=== PATIENT | female | born 1975 | race Caucasian/White ===

== ENCOUNTER 2021-05-02 18:37 | Emergency (ER) | payer MEDICAID, SELFPAY ==
[2021-05-02 18:37] VITALS: BP 128/77; PULSE 124; RESP 18; TEMP 36.6; O2SAT 98; BMI 23.0
--- NOTE | 2021-05-02 18:56 | EDS_ITS ---
HPI HPI - Female History of Present Illness Chief Complaint: Female C/O Informant: patient Pain Pain: Positive for Pelvic Pain Onset: Days Context: Gradual Onset Quality: Positive for Aching and - (Pressure) Current Severity: Mild Maximum Severity: Mild Narrative Narrative: Patient presents secondary to pelvic pressure. She noted slight increased work of passing urine and gas recently. She does have a history of co nstipation. She states when she started to inspect the area she felt like there was some tissue protruding from her vaginal opening. She did have a hysterectomy 10 years ago. She is scheduled to see Dr. Tabares next week. PFSH PFSH Allergy/AdvReac Type Severity Reaction Status Date / Time No Known Allergies Allergy Verified 05/02/21 18:39 Surgical History H/O: hysterectomy Social History Smoking Status: Never smoker ROS ROS ED Constitutional Constitutional ED: Denies chills or fever(s) Eyes Eyes: Denies change in vision ENT ENT ED: Denies sore throat Cardiovascular Cardiovascular: Denies chest pain Respiratory/Chest Respiratory/Chest: Denies cough or dyspnea Gastrointestinal Gastrointestinal: Reports abdominal pain; Denies diarrhea, nausea or vomiting Genitourinary Genitourinary ED: Denies dysuria or hematuria Musculoskeletal Musculoskeletal: Denies back pain Integumentary Denies rash Neurologic Neurologic: Denies headache(s) or weakness Allergic/Immunologic Allergic/Immunologic ED: Denies urticaria EXAM Physical Exam Const Vital Signs: 05/02/21 18:37 Temperature 97.9 F Temperature Source Temporal Pulse Rate 124 H Respiratory Rate 18 Blood Pressure 128/77 H Blood Pressure Mean 94 Pulse Ox 98 Oxygen Delivery Method Room Air Positive well nourished and well developed General Appearance ED: well developed HEENT Reports moist mucous membranes Eyes PERRL and EOMs intact bilaterally Neck supple Chest Wall inspection of chest normal and palpation of chest normal Resp normal respiratory effort and clear to auscultation bilaterally Cardio regular rate and regular rhythm GI normal to inspection, nondistended, normoactive bowel sounds, soft to palpation and non-tender Narrative: No abnormal vaginal tissue noted on external exam. No lesions. Digital examination of the vaginal area reveals no palpable masses. Extremity normal to inspection Neuro oriented x3 Sensorium / Orientation: alert Psych mental status grossly normal Skin no rashes or lesions noted MDM [facility] Lab Data Attestation: I reviewed the patient's lab results. Labs: Laboratory Results - last 24 hr 05/02/21 20:04 Urine Color Yellow Urine Clarity Clear Urine pH 6.0 Ur Specific [place] 1.025 Urine Protein Negative Urine Glucose (UA) Normal Urine Ketones 5 H Urine Occult Blood Negative Urine Nitrite Negative Urine Bilirubin Negative Urine Urobilinogen Normal Ur Leukocyte Esterase Negative Urine RBC 0 SEEN Urine WBC 0 SEEN Ur Squamous Epith Cells 0-5 SEEN Urine Bacteria 1+ Urine Mucus 0 SEEN Radiography Diagnostic Testing: Clinical Impression(s) from Imaging Studies Abdomen X-Ray 05/02/21 19:03 IMPRESSION: Non-obstructive bowel gas pattern. Moderate amount of retained stool in colon. Electronically Signed: Zeus Elaine MD at 20:36 EDT , Treatment and Re-Evaluation Narrative: Urinalysis reveals no acute abnormalities. Abdominal x-ray reveals increased stool but nonobstructive bowel gas pattern per my interpretation. Radiology to rotation is also reviewed. Test results discussed with the patient. We discussed using magnesium citrate to help treat her constipation. She will follow up with Dr. Tabares next week as scheduled. Discharge Plan Triage Chief Complaint: Female C/O ED Provider: Madalyn Draper Dx/Rx/DC Orders Clinical Impression: Pelvic pain, Constipation Instructions: ED Constipation (Adult), ED Pelvic Pain, Unknown Cause Primary Care Provider: Lachelle Tucker Referrals: Lachelle Tucker MD [Primary Care Provider] - Jaxon Tabares MD [STAFF PHYSICIAN] - Keep Hallie appointment Disposition Disposition: Home, Self Care
--- NOTE | 2021-05-02 19:03 | RAD_ITS ---
INDICATION: pain EXAMINATION/TECHNIQUE: X-RAY - XR Abdomen W/ Decub and/or Erect Views COMPARISON: None FINDINGS: BOWEL GAS PATTERN: Non-obstructive. Moderate amount of retained stool in colon. FREE AIR: Not assessed on a single supine view. ORGANOMEGALY: Not seen. CALCIFICATIONS: No abnormal calcifications observed. LOWER CHEST: No acute pathology. BONES AND SOFT TISSUES: No acute pathology. RAD/Abd Inc Decub and/or Erect IMPRESSION: Non-obstructive bowel gas pattern. Moderate amount of retained stool in colon. Electronically Signed: Zeus Elaine MD at 20:36 EDT ,
[2021-05-02 20:12] LABS: Mucous, Urine 0 SEEN /hpf (<or=2+); Red Blood Cells-Urine 0 SEEN /hpf (0-5); White Blood Cells 0 SEEN /hpf (0-5)
[2021-05-02 20:13] LABS: Color, Urine Yellow (Yellow); Glucose, Dipstick Normal (Normal); Ketone-Dipstick 5 mg/dl (Negative); Leukocyte Esterase-Dipstick Negative /ul (Negative); Nitrite-Dipstick Negative (Negative); Occult Blood-Urine Negative /ul (Negative); Protein-Dipstick Negative (Negative); Specific Gravity, Urine 1.025 (1.002-1.030); Urine Bilirubin Dipstick Negative (Negative); Urine Clarity Clear (Clear); Urine Urobilinogen Normal (Normal)
[2021-05-02 20:36] LABS: Bacteria 1+ /hpf (None Seen); Squamous Epithelial Cells - UA 0-5 SEEN /hpf (5-10)
[2021-05-02 20:53] VITALS: BP 115/74; PULSE 85; RESP 16; O2SAT 99
== END 2021-05-02 20:54 | disposition home or self-care (01) ==
PROVIDERS: Emergency Provider Emergency Medicine; PCP Family Medicine; Visit Provider Emergency Medicine
DX: R10.2 Pelvic and perineal pain (principal); K59.00 Constipation, unspecified; Z90.710 Acquired absence of both cervix and uterus
CPT/HCPCS: 74019; 81001; 99282